=== PATIENT | male | born 1960 | race Hispanic/Latino ===

== ENCOUNTER 2017-03-15 15:28 | Emergency (ER) | payer OTHER ==
[2017-03-15 15:36] VITALS: TEMP 97.5
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
[2017-03-15] MEDS ORDERED: Bacitracin 500 Units/gm Oint Foilpak UD ONE (16:16)
[2017-03-15 16:25] VITALS: BP 130/74; PULSE 50; RESP 16
[2017-03-15 17:03] VITALS: O2SAT 100
== END 2017-03-15 16:28 | disposition home or self-care (01) ==
LOC: C.ER 15:28
DX: S00.81XA Abrasion of other part of head, initial encounter (principal); S00.511A Abrasion of lip, initial encounter; W22.8XXA Striking against or struck by other objects, initial encounter; Y92.89 Other specified places as the place of occurrence of the external cause; Y99.0 Civilian activity done for income or pay